=== PATIENT | female | born 1990 | race Caucasian/White ===

== ENCOUNTER 2017-12-08 09:06 | Emergency (ER) | payer SELFPAY ==
--- NOTE | 2017-12-08 09:57 | ED Physician Chart ---
ED Chief Complaint/HPI - Patient Information Date Seen:: 12/08/17 Time Seen:: 09:52 Chief Complaint:: rash [place] sore throat History of Present Illness:: 27 yr old female with rash [place] and sore throat since friday pt came recently from [facility] [place] and started a new job no fever or cough no dizziness or headache Allergies:: Allergies Allergy/AdvReac Type Severity Reaction Status Date / Time No Known Allergies Allergy Verified 12/08/17 09:30 Vitals:: Vital Signs - 8 hr 12/08/17 12/08/17 09:10 09:49 Temp 99.6 F 99 F HR 99 99 RR 19 18 BP 102/70 102/70 O2 Sat % 99 99 ED Review of Systems - Review of Systems General/Constitutional: No fever Skin: Skin lesions (pox like lesions [place] sol[place] several in number) Head: No headache Eyes: No loss of vision ENT: No earache, No nasal drainage, No sore throat, No tinnitus Neck: No neck pain, No swelling, No thyromegaly, No stiffness, No mass noted Cardio Vascular: No chest pain, No palpitations, No PND, No orthopnea, No edema Pulmonary: No SOB, No cough, No sputum, No wheezing GI: No nausea, No vomiting, No diarrhea, No pain, No melena, No hematochezia, No constipation, No hematemesis G/U: No dysuria, No frequency, No hematuria Musculoskeletal: No bone or joint pain, No back pain, No muscle pain Endocrine: No polyuria, No polydipsia Psychiatric: No prior psych history, No depression, No anxiety, No suicidal ideation Hematopoietic: No bruising, No lymphadenopathy Allergic/Immuno: No urticaria, No angioedema Neurological: No syncope, No focal symptoms, No weakness, No paresthesia, No headache, No seizure, No dizziness, No confusion, No vertigo ED Past Medical History - Past Medical History Past Medical History: No significant medical hx Family Medical History - Family Member Grandfather History Unknown: Yes Hx Family Cancer: Yes ED Septic Shock - . Is Septic Shock (SBP<90, OR Lactate>4 mmol\L) present?: No - <6hrs of presentation: Vital Signs: Vital Signs - 8 hr 12/08/17 12/08/17 09:10 09:49 Temp 99.6 F 99 F HR 99 99 RR 19 18 BP 102/70 102/70 O2 Sat % 99 99 ED Reassessment (Disposition) - Diagnosis Diagnosis:: unchanged - Patient Disposition Discharge/Transfer:: Home Condition at Disposition:: Stable
== END 2017-12-08 09:57 | disposition home or self-care (01) ==
LOC: ER 09:06
DX: R21 Rash and other nonspecific skin eruption (principal); J02.9 Acute pharyngitis, unspecified
CPT/HCPCS: Z7502